=== PATIENT | female | born 1950 | race Caucasian/White ===

== ENCOUNTER 2018-10-20 06:26 | Day surgery (SDC) | payer MEDICARE ==
[2018-10-20] MEDS ORDERED: Lactated Ringers 1,000 ML IV SCH (06:30)
--- NOTE | 2018-10-20 07:56 | HP ---
DATE OF SURGERY: 10/20/2018 ANTICIPATED PROCEDURE: Colonoscopy. HISTORY OF PRESENT ILLNESS: The patient has a large sessile polyp and presents for follow up colonoscopy. PAST MEDICAL HISTORY: ALLERGIES: SULFA. MEDICATIONS: Toprol, alendronate, baby aspirin, lisinopril. PAST SURGICAL HISTORY: Colon resection. Coronary artery bypass graft. Hysterectomy. Tubal ligation. Cholecystectomy. SOCIAL HISTORY: Negative. FAMILY HISTORY: Negative. REVIEW OF SYSTEMS: Cardiac disease. PHYSICAL EXAMINATION: VITAL SIGNS: Normal. CHEST: Clear. COR: Regular. ABDOMEN: Satisfactory. PLAN: Colonoscopy.
[2018-10-20] MEDS ORDERED: DIPRIVAN 200 MG/20 ML IV ONE ×2 (10:03→10:18)
--- NOTE | 2018-10-20 10:47 | OP ---
SURGERY DATE/TIME: 10/20/2018 1001 PREOPERATIVE DIAGNOSIS: Follow up large atypical polyp. POSTOPERATIVE DIAGNOSIS: Normal anastomosis at 55 cm. PROCEDURE: Colonoscopy. SURGEON: Nir Lozano M.D. ANESTHESIA: MAC. COMPLICATIONS: None. CONDITION: Stable. INDICATION: A patient requiring evaluation. She had a previous atypical polyp. DESCRIPTION OF PROCEDURE: Taken to endoscopy. MAC sedation provided. Anal digital examination. Scope advanced 55 cm. Anastomosis normal. Anastomosis could not be cannulated either blind end or the forward limb. There was no suggestion of issue here however at all. All edges were totally smooth and normal. Scope angulation and position would not advance from here.
[2018-10-20 11:13] VITALS: O2SAT 99
[2018-10-20 11:28] VITALS: BP 140/77; PULSE 70
== END 2018-10-20 11:30 | disposition home or self-care (01) ==
LOC: SDC 06:26
PROVIDERS: ATTEND Surgery
DX: Z09 Encounter for follow-up examination after completed treatment for conditions other than malignant neoplasm (principal); Z86.010 Personal history of colon polyps; Z98.0 Intestinal bypass and anastomosis status
CPT/HCPCS: J2704

== ENCOUNTER 2020-10-02 13:27 | Emergency (ER) | payer MEDICARE ==
[2020-10-02 13:59] VITALS: O2SAT 98
[2020-10-02] MEDS ORDERED: Adacel Vial IM ONE ×2 (14:11→14:18)
--- NOTE | 2020-10-02 14:11 | ERPHSYRPT ---
- History of Present Illness Time Seen by Provider: 10/02/20 13:30 Source: patient Exam Limitations: no limitations Patient Subjective Stated Complaint: Pt states "I was bitten by a brown recluse, I know because I saw it. It happened a couple of days ago and I called Dr. Garcia and she told me I might need an antibiotic and to come here because it is not getting any better." Triage Nursing Assessment: Pt presented alert and oriented x 3, skin pwd Pt ambulates with a slight limp. Pt has 7 cmx 6 cm abscess, hard to touch, no streaking noted. CSM X 4. Physician History: 69 years old female presented in the ER with chief complaint of left leg insect bite just below the lateral knee area 2 days ago. Patient think it was brown recluse. She reports gradually increasing swelling and redness around involving almost 3 inches area of sacral branch with associated dull aching pain with burning sensation and itching. She also reports some tingling sensation in the lateral toes. No fever or chills reported. Unsure about tetanus status. Timing/Duration: day(s) (2), sudden, worse Quality: itchy, painful Severity: moderate Location: extremities Possible Causes: insect bite Associated Symptoms: change in skin texture, rash, swelling/mass/lumps Allergies/Adverse Reactions: nitrofurantoin macrocrystalline [From Macrodantin] Allergy (Intermediate, Verified 10/20/18 06:55) Rash rash and wheezes Sulfa (Sulfonamide Antibiotics) [Sulfa(Sulfonamide Antibiotics)] Allergy (Intermediate, Verified 10/20/18 06:55) Rash Home Medications: Metoprolol Succinate 25 mg Xl* [Toprol-Xl 25MG Tablets] 1 tab PO DAILY 02/06/16 [History] Aspirin 81 gm Chew [Baby Aspirin 81 mg Chew] 81 mg PO DAILY 10/13/18 [History] Atorvastatin Calcium [Lipitor] 80 mg PO DAILY 10/02/20 [History] Ezetimibe 10 mg [Zetia 10 MG] 10 mg PO DAILY 10/02/20 [History] Hx Tetanus, Diphtheria Vaccination/Date Given: No Hx Influenza Vaccination/Date Given: No Hx Pneumococcal Vaccination/Date Given: No Immunizations Up to Date: Yes Travel Risk - International Travel Have you traveled outside of the country in past 3 weeks: No - Coronavirus Screening Are you exhibiting any of the following symptoms?: No Close contact with a COVID-19 positive Pt in past 14-21 Days: No - Vaccine Status Have you recieved a Covid-19 vaccination: No - Review of Systems Constitutional: No Symptoms Eyes: No Symptoms Respiratory: No Symptoms Cardiac: No Symptoms Abdominal/Gastrointestinal: No Symptoms Skin: Cellulitis, Skin Lesions Neurological: No Symptoms Psychological: No Symptoms Hematologic/Lymphatic: No Symptoms Immunological/Allergic: No Symptoms - Past Medical History Pertinent Past Medical History: Yes Neurological History: No Pertinent History ENT History: No Pertinent History Cardiac History: Coronary Artery Disease, High Cholesterol Respiratory History: No Pertinent History Endocrine Medical History: No Pertinent History Musculoskeletal History: Osteoporosis GI Medical History: Colorectal Cancer, GERD, Gallbladder Disease History: Other Psycho-Social History: No Pertinent History Female Reproductive Disorders: No Pertinent History Other Medical History: Kidney Stones, hx large colon mass, it was non- cancerous. - Past Surgical History Past Surgical History: Yes Neuro Surgical History: No Pertinent History Cardiac: CABG, Cardiac Catheterization, Other Respiratory: No Pertinent History Gastrointestinal: Colon Resection, Cholecystectomy Genitourinary: Kidney Surgery Musculoskeletal: No Pertinent History Female Surgical History: Hysterectomy, Tubal Ligation Other Surgical History: kidney stone,a&p, hx of sepsis r/t kidney stones,CHF, temporary pacemaker wires remain in place. pt states they were just clipped off. - Social History Smoking Status: Current every day smoker How long have you smoked: years Exposure to second hand smoke: Yes Drug Use: none Patient Lives Alone: No - Female History Hx Now: No - Nursing Vital Signs Nursing Vital Signs: Initial Vital Signs Temperature 98.1 F 10/02/20 13:50 Pulse Rate 86 10/02/20 13:50 Respiratory Rate 20 10/02/20 13:50 Blood Pressure 184/77 10/02/20 13:50 O2 Sat by Pulse Oximetry 98 10/02/20 13:50 Pain Scale Pain Intensity 7 - Physical Exam General Appearance: no apparent distress, alert Eye Exam: eyes nml inspection Ears, Nose, Throat Exam: normal ENT inspection Neck Exam: normal inspection, full range of motion Respiratory Exam: normal breath sounds, lungs clear Cardiovascular Exam: regular rate/rhythm, normal heart sounds Back Exam: normal inspection, normal range of motion Extremity Exam: normal range of motion, pelvis stable Neurologic Exam: alert, oriented x 3, cooperative Skin Exam: normal color, other (Bite nani with surrounding erythema circumferential 7 cm in diameter without any necrosis of the central area of bite. Warm, firm/nonfluctuant. Mildly tender to palpation.) SpO2 Interpretation: normal SpO2: 98 O2 Delivery: Room Air - Progress Progress: unchanged Progress Note: 10/02/20 14:09 Tetanus is updated. She is started on clindamycin. We will give it short course of steroid. Outpatient follow-up. Discussed signs symptoms of worsening needing return to ER which she seems understanding. Counseled pt/family regarding: diagnosis, need for follow-up - Departure Departure Disposition: Home Clinical Impression: Insect bite Qualifiers: Encounter type: initial encounter Site of insect bite: lower leg Laterality: left Qualified Code(s): S80.862A - Insect bite (nonvenomous), left lower leg, initial encounter; W57.XXXA - Bitten or stung by nonvenomous insect and other nonvenomous arthropods, initial encounter Condition: Stable Critical Care Time: No Referrals: BRYCE GARCIA [Primary Care Provider] - Instructions: MRSA (DC), Wound Infection Additional Instructions: Use Tylenol as needed for pain. Follow-up with primary care for reevaluation in 2 days. Return to ER for increasing swelling redness discharge/fever chills/increasing pain or difficulty movements at knee. Prescriptions: Clindamycin HCl 150 mg [Cleocin 150 mg Capsule] 2 cap PO QID #56 capsule Prednisone 20 mg [Deltasone 20 mg] 40 mg PO DAILY 5 Days #10 tablet
[2020-10-02 14:14] VITALS: BP 168/78; PULSE 84
== END 2020-10-02 14:35 | disposition home or self-care (01) ==
LOC: ED 13:27
DX: T63.331A Toxic effect of venom of brown recluse spider, accidental (unintentional), initial encounter (principal); M79.89 Other specified soft tissue disorders
CPT/HCPCS: 90471; 90715; 99283

== ENCOUNTER 2023-04-25 05:12 | Emergency (ER) | payer MEDICARE ==
[2023-04-25 05:32] VITALS: TEMP 96
--- NOTE | 2023-04-25 06:03 | ERPHSYRPT ---
- History of Present Illness Historian: patient, family Exam Limitations: no limitations Patient Subjective Stated Complaint: Abdominal pain Triage Nursing Assessment: Patient brought back to ED per w/c and transferred to bed per self. Patient A+O X3. Patient's skin pale, warm and dry. Patient complains of abdominal pain, N/V and diarrhea since yesterday at 1600. Abdomen soft and round with BS X 4. Patient complains of abdominal pain 8/10. Activities at Onset: none Quality: cramping, sharpness Abdominal Pain Onset Location: generalized abdomen Pain Radiation: no radiation Severity of Pain-Max: moderate Severity of Pain-Current: moderate Modifying Factors: Improves With: vomiting Associated Symptoms: nausea, vomiting Previous symptoms: no prior history Hx Tetanus, Diphtheria Vaccination/Date Given: No Hx Influenza Vaccination/Date Given: No Hx Pneumococcal Vaccination/Date Given: No Immunizations Up to Date: Yes <ELSA YANEZ - Last Filed: 04/25/23 06:43> <SALINA MACE - Last Filed: 04/25/23 08:05> - History of Present Illness Time Seen by Provider: 04/25/23 06:02 Physician History: pt has had abd pain since last afternoon with vomiting. prior abd tumor resection and cholecystectomy. general tenderness accross upper abdomen on exam . No prior episodes. discussed risks/benefits of testing with pt including CT abd, CBC, CMP, Lacate, Lipase , jer, UA, EKG, Trop, and Tx IVF zofran, morphine, and she wishes to proceed. THese are ordered, results discussed with pt . (ELSA YANEZ) Allergies/Adverse Reactions: nitrofurantoin macrocrystalline [From Macrodantin] Allergy (Intermediate, Verified 04/25/23 05:22) Rash rash and wheezes Sulfa (Sulfonamide Antibiotics) [Sulfa(Sulfonamide Antibiotics)] Allergy (Intermediate, Verified 04/25/23 05:22) Rash meperidine [From Demerol] Allergy (Verified 04/25/23 05:24) Hallucinations Home Medications: Metoprolol Succinate 25 mg Xl* [Toprol-Xl 25MG Tablets] 2 tab PO DAILY 02/06/16 [History] Aspirin 81 gm Chew [Baby Aspirin 81 mg Chew] 81 mg PO DAILY 10/13/18 [History] Travel Risk - International Travel Have you traveled outside of the country in past 3 weeks: No - Coronavirus Screening Are you exhibiting any of the following symptoms?: No Close contact with a COVID-19 positive Pt in past 14-21 Days: No - Vaccine Status Have you recieved a Covid-19 vaccination: Yes Sourcing Analyst: Unknown - Vaccination Dates Dates if Unknown: na <ELSA YANEZ - Last Filed: 04/25/23 06:43> - Review of Systems Constitutional: No Fever, No Chills Eyes: No Symptoms Ears, Nose, & Throat: No Symptoms Respiratory: No Cough, No Dyspnea Cardiac: No Chest Pain, No Edema, No Syncope Abdominal/Gastrointestinal: Abdominal Pain, Nausea, Vomiting, No Diarrhea Genitourinary Symptoms: No Dysuria Musculoskeletal: No Back Pain, No Neck Pain Skin: No Rash Neurological: No Dizziness, No Focal Weakness, No Sensory Changes Psychological: No Symptoms Endocrine: No Symptoms Hematologic/Lymphatic: No Symptoms Immunological/Allergic: No Symptoms All Other Systems: Reviewed and Negative <ELSA YANEZ - Last Filed: 04/25/23 06:43> - Past Medical History Pertinent Past Medical History: Yes Neurological History: No Pertinent History ENT History: No Pertinent History Cardiac History: Coronary Artery Disease, High Cholesterol Respiratory History: No Pertinent History Endocrine Medical History: No Pertinent History Musculoskeletal History: Osteoporosis GI Medical History: Colorectal Cancer, GERD, Gallbladder Disease History: Other Psycho-Social History: No Pertinent History Female Reproductive Disorders: No Pertinent History Other Medical History: Kidney Stones, hx large colon mass, it was non- cancerous. - Past Surgical History Past Surgical History: Yes Neuro Surgical History: No Pertinent History Cardiac: CABG, Cardiac Catheterization, Other Respiratory: No Pertinent History Gastrointestinal: Colon Resection, Cholecystectomy Genitourinary: Kidney Surgery Musculoskeletal: No Pertinent History Female Surgical History: Hysterectomy, Tubal Ligation Other Surgical History: kidney stone,a&p, hx of sepsis r/t kidney stones,CHF, temporary pacemaker wires remain in place. pt states they were just clipped off. - Social History Smoking Status: Current every day smoker How long have you smoked: years Exposure to second hand smoke: Yes Drug Use: none Patient Lives Alone: No <ELSA YANEZ - Last Filed: 04/25/23 06:43> - Physical Exam General Appearance: mild distress, alert Eye Exam: PERRL/EOMI, eyes nml inspection Ears, Nose, Throat Exam: normal ENT inspection, pharynx normal, moist mucous membranes Neck Exam: normal inspection, non-tender, supple, full range of motion Respiratory Exam: normal breath sounds, lungs clear, No respiratory distress Cardiovascular Exam: regular rate/rhythm, normal heart sounds Gastrointestinal/Abdomen Exam: soft, tenderness, guarding, No mass Pelvic Exam: deferred Rectal Exam: deferred Back Exam: normal inspection, normal range of motion, No CVA tenderness, No vertebral tenderness Extremity Exam: normal inspection, normal range of motion, pelvis stable Neurologic Exam: alert, oriented x 3, cooperative, normal mood/affect, nml cerebellar function, sensation nml, No motor deficits Skin Exam: normal color, warm, dry SpO2 Interpretation: normal SpO2: 96 O2 Delivery: Room Air <ELSA YANEZ - Last Filed: 04/25/23 06:43> - Nursing Vital Signs Nursing Vital Signs: Initial Vital Signs Temperature 96.0 F 04/25/23 05:27 Pulse Rate 76 04/25/23 05:27 Respiratory Rate 20 04/25/23 05:27 Blood Pressure 165/67 04/25/23 05:27 O2 Sat by Pulse Oximetry 96 04/25/23 05:27 Pain Scale Pain Intensity 5 - Course Nursing assessment & vital signs reviewed: Yes EKG Interpreted by Me: Sinus Rhythm, NORMAL INTERVALS, NORMAL QRS, Non-specific ST Changes <BEAUELSA SANDRA - Last Filed: 04/25/23 06:43> - CT Exams Abdomen/Pelvis CT Interpretation: Tele-radiologist Report <SALINA MACE - Last Filed: 04/25/23 08:05> Ordered Tests: Active Orders 24 hr Category Date Time Status EKG-ER Only STAT Care 04/25/23 06:17 Active IV Insertion STAT Care 04/25/23 06:17 Active ABDOMEN AND PELVIS W/0 CONTRAS [CT] Stat Exams 04/25/23 06:18 Completed AMYLASE Stat Lab 04/25/23 06:20 Completed CBC W DIFF Stat Lab 04/25/23 06:20 Completed CMP Stat Lab 04/25/23 06:20 Completed LIPASE Stat Lab 04/25/23 06:20 Completed Lactic Acid Stat Lab 04/25/23 06:25 Completed TROPONIN Q4H Lab 04/25/23 06:20 Completed TROPONIN Q4H Lab 04/25/23 10:30 Ordered TROPONIN Q4H Lab 04/25/23 14:30 Ordered UA W/RFX UR CULTURE Stat Lab 04/25/23 06:20 Completed Medication Summary Generic Name Dose Route Start Last Admin Trade Name Ariadna PRN Reason Stop Dose Admin Sodium Chloride 1,000 mls @ 100 mls/hr 04/25/23 06:30 04/25/23 06:30 Sodium Chloride 0.9% 1000 Ml IV 05/25/23 06:29 100 mls/hr .Q10H PARAM Administration Discontinued Medications Generic Name Dose Route Start Last Admin Trade Name Ariadna PRN Reason Stop Dose Admin Famotidine 20 mg 04/25/23 06:17 04/25/23 06:27 Famotidine 20 Mg/1 Vial IV 04/25/23 06:18 20 mg STAT ONE Administration Famotidine Confirm 04/25/23 06:22 Famotidine 20 Mg/1 Vial Administered 04/25/23 06:23 Dose 20 mg IV .STK-MED ONE Morphine Sulfate 4 mg 04/25/23 06:17 04/25/23 06:30 Morphine Sulfate 4 Mg/Ml Injection IV 04/25/23 06:18 4 mg STAT ONE Administration Morphine Sulfate Confirm 04/25/23 06:23 Morphine Sulfate 4 Mg/Ml Injection Administered 04/25/23 06:24 Dose 4 mg .ROUTE .STK-MED ONE Ondansetron HCl 4 mg 04/25/23 06:17 04/25/23 06:25 Ondansetron Hcl 4 Mg/2 Ml Vial IV 04/25/23 06:18 4 mg STAT ONE Administration Ondansetron HCl Confirm 04/25/23 06:22 Ondansetron Hcl 4 Mg/2 Ml Vial Administered 04/25/23 06:23 Dose 4 mg .ROUTE .STK-MED ONE Pantoprazole Sodium 40 mg 04/25/23 06:17 04/25/23 06:26 Pantoprazole 40 Mg Vial IV 04/25/23 06:18 40 mg STAT ONE Administration Pantoprazole Sodium Confirm 04/25/23 06:23 Pantoprazole 40 Mg Vial Administered 04/25/23 06:24 Dose 40 mg IV .STK-MED ONE Lab/Rad Data: Laboratory Result Diagrams 04/25/23 06:20 04/25/23 06:20 Laboratory Results 04/25/23 04/25/23 04/25/23 Range/Units 06:25 06:20 06:20 WBC (4.0-10.5) x10^3/uL RBC (4.1-5.4) x10^6/uL Hgb (12.0-16.0) g/dL Hct (35-47) % MCV (78-100) fL MCH (26-32) pg MCHC (32-36) g/dL RDW (11.5-14.0) % Plt Count (150-450) x10^3/uL MPV (7.5-11.0) fL Gran % (36.0-66.0) % Immature Gran % (Auto) (0.00-0.4) % Nucleat RBC Rel Count (0.00-0.1) % Eos # (Auto) (0-0.5) x10^3/uL Immature Gran # (Auto) (0.00-0.03) x10^3u/L Absolute Lymphs (auto) (1.0-4.6) x10^3/uL Absolute Monos (auto) (0.0-1.3) x10^3/uL Absolute Nucleated RBC (0.00-0.01) x10^3u/L Lymphocytes % (24.0-44.0) % Monocytes % (0.0-12.0) % Eosinophils % (0.00-5.0) % Basophils % (0.0-0.4) % Absolute Granulocytes (1.4-6.9) x10^3/uL Basophils # (0-0.4) x10^3/uL Sodium 140 (137-145) mmol/L Potassium 3.8 (3.5-5.1) mmol/L Chloride 108 H (98-107) mmol/L Carbon Dioxide 23 (22-30) mmol/L Anion Gap 12.0 (5-15) MEQ/L BUN 26 H (7-17) mg/dL Creatinine 1.27 H (0.52-1.04) mg/dL Estimated GFR 44.7 ML/MIN Glucose 160 H (74-106) mg/dL Lactic Acid 1.6 (0.4-2.0) Calcium 10.3 H (8.4-10.2) mg/dL Total Bilirubin 1.10 (0.2-1.3) mg/dL AST 30 (14-36) U/L ALT 21 (0-35) U/L Alkaline Phosphatase 123 (38-126) U/L Troponin I < 0.012 (0.000-0.034) ng/mL Serum Total Protein 7.5 (6.3-8.2) g/dL Albumin 4.6 (3.5-5.0) g/dL Amylase 77 (30-110) U/L Lipase 32 (23-300) U/L Urine Color (Yellow) Urine Appearance (Clear) Urine pH (4.6-8.0) Ur Specific Marston (1.005-1.030) Urine Protein (Negative) Urine Glucose (UA) (Negative) mg/dL Urine Ketones (Negative) Urine Blood (Negative) Urine Nitrite (Negative) Urine Bilirubin (Negative) Urine Urobilinogen (0.2) mg/dL Ur Leukocyte Esterase (Negative) U Hyaline Cast (Auto) (0-2) /LPF Urine Microscopic RBC (0-5) /HPF Urine Microscopic WBC (0-5) /HPF Ur Epithelial Cells (None Seen) /HPF Urine Bacteria (None Seen) /HPF Urine Culture Reflexed (NO) Influenza Type A Ag (NEGATIVE) Influenza Type B Ag (NEGATIVE) RSV (PCR) (NEGATIVE) SARS-CoV-2 (PCR) (NEGATIVE) 04/25/23 04/25/23 04/25/23 Range/Units 06:20 06:20 06:15 WBC 15.1 H (4.0-10.5) x10^3/uL RBC 4.74 (4.1-5.4) x10^6/uL Hgb 14.3 (12.0-16.0) g/dL Hct 43.9 (35-47) % MCV 92.6 (78-100) fL MCH 30.2 (26-32) pg MCHC 32.6 (32-36) g/dL RDW 12.2 (11.5-14.0) % Plt Count 212 (150-450) x10^3/uL MPV 12.2 H (7.5-11.0) fL Gran % 90.4 H (36.0-66.0) % Immature Gran % (Auto) 0.3 (0.00-0.4) % Nucleat RBC Rel Count 0.0 (0.00-0.1) % Eos # (Auto) 0 (0-0.5) x10^3/uL Immature Gran # (Auto) 0.05 H (0.00-0.03) x10^3u/L Absolute Lymphs (auto) 0.87 L (1.0-4.6) x10^3/uL Absolute Monos (auto) 0.49 (0.0-1.3) x10^3/uL Absolute Nucleated RBC 0.00 (0.00-0.01) x10^3u/L Lymphocytes % 5.8 L (24.0-44.0) % Monocytes % 3.2 (0.0-12.0) % Eosinophils % 0.0 (0.00-5.0) % Basophils % 0.3 (0.0-0.4) % Absolute Granulocytes 13.66 H (1.4-6.9) x10^3/uL Basophils # 0.05 (0-0.4) x10^3/uL Sodium (137-145) mmol/L Potassium (3.5-5.1) mmol/L Chloride (98-107) mmol/L Carbon Dioxide (22-30) mmol/L Anion Gap (5-15) MEQ/L BUN (7-17) mg/dL Creatinine (0.52-1.04) mg/dL Estimated GFR ML/MIN Glucose (74-106) mg/dL Lactic Acid (0.4-2.0) Calcium (8.4-10.2) mg/dL Total Bilirubin (0.2-1.3) mg/dL AST (14-36) U/L ALT (0-35) U/L Alkaline Phosphatase (38-126) U/L Troponin I (0.000-0.034) ng/mL Serum Total Protein (6.3-8.2) g/dL Albumin (3.5-5.0) g/dL Amylase (30-110) U/L Lipase (23-300) U/L Urine Color Dark Yellow A (Yellow) Urine Appearance Clear (Clear) Urine pH 5.5 (4.6-8.0) Ur Specific Marston 1.025 (1.005-1.030) Urine Protein 30 (Negative) Urine Glucose (UA) Negative (Negative) mg/dL Urine Ketones Trace A (Negative) Urine Blood Negative (Negative) Urine Nitrite Negative (Negative) Urine Bilirubin Small A (Negative) Urine Urobilinogen 1.0 A (0.2) mg/dL Ur Leukocyte Esterase Small A (Negative) U Hyaline Cast (Auto) NONE SEEN (0-2) /LPF Urine Microscopic RBC 0-2 (0-5) /HPF Urine Microscopic WBC 3-5 (0-5) /HPF Ur Epithelial Cells Few (None Seen) /HPF Urine Bacteria Rare A (None Seen) /HPF Urine Culture Reflexed NO (NO) Influenza Type A Ag NEGATIVE (NEGATIVE) Influenza Type B Ag NEGATIVE (NEGATIVE) RSV (PCR) NEGATIVE (NEGATIVE) SARS-CoV-2 (PCR) NEGATIVE (NEGATIVE) CT/ABDOMEN AND PELVIS W/0 CONTRAS CLINICAL HISTORY: abd pain TECHNIQUE: CT scan of the abdomen and pelvis was performed without IV contrast. COMPARISON: None FINDINGS: The liver is normal size and shape and with regular margins. No focal or diffuse parenchymal abnormality. No hepatic mass is identified. The portal vein, intrahepatic biliary radicals, and the bile ducts are normal. The gall bladder is surgically removed with surgical clips. Pancreas appears normal. No peripancreatic fat stranding, pancreatic pseudocyst or peripancreatic fluid collection. Spleen normal in size, no mass seen. it shows multiple calcific foci likely granulomatous. Both adrenal glands are unremarkable. Both kidneys are normal in size, shape and orientation. No calculi, cyst mass or hydronephrosis seen on either side. Left renal cortical macrolobulated cyst measuring 5.2 x 3.8 cm. Both ureters and urinary bladder appear normal. Stomach and small bowel loops are unremarkable. Caecum, appendix and ileocecal junction appear normal. Large bowel loops appear distended with multiple fecal residue up to the distal descending colon where there the sigmoid colon is nearly collapsed. No gross masses or abnormal wall thickening was noted at this point. Evidence of surgical suturing in the descending colon for clinical correlation. Few diverticula are noted, one showing subtle surrounding fatty smudging. Sigmoid and rectum appear normal. No free peritoneal fluid or air. No evidence of significant enlargement of the mesenteric or retroperitoneal lymph nodes. Atheromatous calcifications of aorta and iliacs. Visualized thoracic and lumbar spine appear normal. No lytic or sclerotic bone lesions in visualized bones. Lower chest cuts show basal pulmonary parenchymal bands, coronary calcifications and evidence of previous sternotomy. IMPRESSION: 1. Distended large bowel with evidence of fecal impaction up the distal descending colon, the sigmoid colon is normal in caliber and the transition point is smooth with no gross masses or significant wall thickening. Few adjacent diverticula are seen, one of which shows subtle adjacent wall thickening (could represent diverticulitis). Evidence of surgical suturing in the descending colon for clinical correlation. 2. Splenic calcific foci likely granulomatous. 3. Left renal cortical cyst. 4. Aortoiliac and coronary atheromatous calcifications. (SALINA MACE) - Progress Progress: improved, re-examined Counseled pt/family regarding: lab results, diagnosis, need for follow-up, rad results <ELSA YANEZ - Last Filed: 04/25/23 06:43> <SALINA MACE - Last Filed: 04/25/23 08:05> - Progress Progress Note: 04/25/23 06:[address] Mace at change of shift for final disposition and Treatment after introduction and discussion of pending lab/imaging and differential diagnosis, hx, and current findings. (ELSA YANEZ) 04/25/23 07:25 Patient is examined. Patient still complaining of somewhat nausea and abdominal pain. Awaiting CAT scan results (SALINA MACE) Medical Desision Making - Discussion of managment Reviewed:: Test results, Need for additional workup Agreed on:: Treatment plan, need for follow-up - Diagnostic Testing Diagnostic test were ordered, analyzed, and reviewed by me: Yes Radiological Interpretation: Reviewed by me, Teleradiologist Report - Risk of complications The pt has a mod risk of morbidity or mortality based on: Need for prescription drug management The pt has a high risk of morbidity or mortality based on: Decision regarding hospitilization or escalation of hosp level of care <ELSA YANEZ - Last Filed: 04/25/23 06:43> - Departure Critical Care Time: No <ELSA YANEZ - Last Filed: 04/25/23 06:43> - Departure Departure Disposition: Home <SALINA MACE - Last Filed: 04/25/23 08:05> - Departure Clinical Impression: Abdominal pain in female, Hypovolemia dehydration, Constipation by delayed colonic transit Vomiting Qualifiers: Vomiting type: unspecified Nausea presence: with nausea Qualified Code(s): R11.2 - Nausea with vomiting, unspecified Condition: Stable Referrals: LISANDRO POWELL [Primary Care Provider] - Follow up/PCP as directed Instructions: Abdominal pain, Dehydration, Adult (DC) Additional Instructions: Discharge/Care Plan MURIEL JONES was seen on 04/25/23 in the Emergency Room. The patient was counseled regarding Diagnosis,Lab results, Imaging studies, need for follow up and when to return to the Emergency Room. Prescriptions given: Discharge Note I have spoken with the patient and/or caregivers. I have explained the patient's condition, diagnosis and treatment plan based on the information available to me at this time. I have answered the patient's and/or caregiver's questions and addressed any concerns. The patient and/or caregivers have as good understanding of the patient's diagnosis, condition and treatment plan as can be expected at this point. The vital signs have been stable. The patient's condition is stable and appropriate for discharge from the emergency department. The patient will pursue further outpatient evaluation with the primary care physician or other designated or consulting physician as outlined in the discharge instructions. The patient and/or caregivers are agreeable to this plan of care and follow-up instructions have been explained in detail. The patient and/or caregivers have received these instruction. The patient/and or caregivers are aware that any significant change in condition or worsening of symptoms should prompt an immediate return to this or the closest emergency department or call 911. MURIEL JONES was seen on 04/25/23 n the Emergency Room. At that time you were treated for an emergent condition, during your visit Laboratory, Radiology and/or other procedures may have been ordered. It is very important that you follow-up with your Primary Care Physician LISANDRO POWELL within the next 24-48 hours to review your Emergency Room visit and the final results of testing that was ordered. Some test results such as Urine Cultures, Blood Cultures, and other cultures if ordered will not be finalized for 24-48 hours. If you do not have a Primary Care Provider please call the medical records department at [phone] ext [phone] to obtain a copy of your results or you may sign into our patient portal to obtain these results by visiting us @ [email or web address] and completing the following steps: 1. Click on the Patient Portal link 2. Click the Patient Self Enrollment Link to complete the enrollment form and entering your 3. Once the enrollment form is completed you will receive an email with a temporary ID and password at the email address you provided. 4. Next choose a user name and password. Your user name must be at least 4 characters long and your password must be at least 4 characters long. 5. Choose a security question from the list and provide your answer to the question. If you already have signed into the Health Portal you may access your Health Care Information 12/10 by the following steps: 1. Login to our website @ [email or web address] 2. Enter your original user name and password. FAQS The [facility] Health Portal is an online tool that contains your Lab Results, Radiology Reports, Visit History, Discharge Instructions and Health Summary Lab and Radiology Results will not be available for 72 hours on the portal. The Portal is a secure site, passwords are encryted and URLs are re-written so they cannot be copied and pasted. You and authorized family members are the only ones who can access your Portal. Also there is a timeout feature that protects your information if you leave the Portal page open. If you have technical difficulty please use the Contact Us link on the page this will allow you to submit any questions you have regarding the Portal or you may contact the Medical Record Department at [phone] ext [phone]. Prescriptions: Sennosides/Docusate Sodium [Colace 2-in-1 Tablet] 1 each PO BID #30 tablet
[2023-04-25] MEDS ORDERED: Zofran 4 MG/2 ML VIAL IV ONE (06:17)
[2023-04-25] MEDS ORDERED: MORPHINE SULFATE 4 MG INJ IV ONE (06:17)
[2023-04-25] MEDS ORDERED: Pepcid 20 MG VIAL IV ONE ×2 (06:17→06:22)
[2023-04-25] MEDS ORDERED: PROTONIX 40 MG IV IV ONE ×2 (06:17→06:23)
[2023-04-25] MEDS ORDERED: Zofran 4 MG/2 ML VIAL ONE (06:22)
[2023-04-25] MEDS ORDERED: MORPHINE SULFATE 4 MG INJ ONE (06:23)
[2023-04-25] MEDS ORDERED: Sodium Chloride 0.9% 1000 ML 1,000 ML ONE (06:23)
[2023-04-25 06:25] LABS: Absolute Neutrophil Ct (ANC) 13.66 x10^3/uL (1.4-6.9); BASOPHIL % 0.3 % (0.0-0.4); Basophil (Absolute #) 0.05 x10^3/uL (0-0.4); Eosinophil (Absolute #) 0 x10^3/uL (0-0.5); Hematocrit 43.9 % (35-47); Hemoglobin 14.3 g/dL (12.0-16.0); IMMATURE GRAN # 0.05 x10^3u/L (0.00-0.03); IMMATURE GRAN % 0.3 % (0.00-0.4); Lymphocyte (Absolute #) 0.87 x10^3/uL (1.0-4.6); Lymphocytes % 5.8 % (24.0-44.0); Mean Cell Volume 92.6 fL (78-100); Mean Corpuscular Hemoglobin 30.2 pg (26-32); Mean Corpuscular Hgb Concent. 32.6 g/dL (32-36); Mean Platelet Volume 12.2 fL (7.5-11.0); Monocyte (Absolute #) 0.49 x10^3/uL (0.0-1.3); Monocytes % 3.2 % (0.0-12.0); Neutrophil % 90.4 % (36.0-66.0); Platelet Count 212 x10^3/uL (150-450); Red Blood Count 4.74 x10^6/uL (4.1-5.4); Red Cell Distribution Width 12.2 % (11.5-14.0); White Blood Count 15.1 x10^3/uL (4.0-10.5)
[2023-04-25] MEDS ORDERED: Sodium Chloride 0.9% 1000 ML 1,000 ML IV SCH (06:30)
[2023-04-25 06:40] LABS: ALBUMIN 4.6 g/dL (3.5-5.0); BILIRUBIN,TOTAL 1.1 mg/dL (0.2-1.3); Calcium 10.3 mg/dL (8.4-10.2); Creatinine 1 1.27 mg/dL (0.52-1.04); EST GLOMERULAR FILTRATION RATE 44.7 ML/MIN; Potassium 3.8 mmol/L (3.5-5.1); Total Protein 7.5 g/dL (6.3-8.2)
[2023-04-25 06:57] LABS: Appearance Clear (Clear); Bilirubin Small (Negative); Blood Negative (Negative); Glucose, Urine Negative (Negative); Hyaline Casts NONE SEEN /LPF (0-2); Ketones Trace (Negative); Leukocyte Esterase Small (Negative); Nitrite Negative (Negative); Ph 5.5 (4.6-8.0); Protein,Urine Dip 30 (Negative); RBC 0-2 /HPF (0-5); Specific Gravity 1.025 (1.005-1.030)
[2023-04-25 07:04] LABS: INFLUENZA A NEGATIVE (NEGATIVE); INFLUENZA B NEGATIVE (NEGATIVE); RESPIRATORY SYNCTIAL VIRUS NEGATIVE (NEGATIVE); SARS-CoV-2 Xpert Express NEGATIVE (NEGATIVE)
[2023-04-25 07:18] LABS: ADD URINE CULTURE? NO (NO); Bacteria Rare /HPF (None Seen); Epithelial Cells Few /HPF (None Seen)
--- NOTE | 2023-04-25 07:57 | XRAY ---
CLINICAL HISTORY: abd pain TECHNIQUE: CT scan of the abdomen and pelvis was performed without IV contrast. COMPARISON: None FINDINGS: The liver is normal size and shape and with regular margins. No focal or diffuse parenchymal abnormality. No hepatic mass is identified. The portal vein, intrahepatic biliary radicals, and the bile ducts are normal. The gall bladder is surgically removed with surgical clips. Pancreas appears normal. No peripancreatic fat stranding, pancreatic pseudocyst or peripancreatic fluid collection. Spleen normal in size, no mass seen. it shows multiple calcific foci likely granulomatous. Both adrenal glands are unremarkable. Both kidneys are normal in size, shape and orientation. No calculi, cyst mass or hydronephrosis seen on either side. Left renal cortical macrolobulated cyst measuring 5.2 x 3.8 cm. Both ureters and urinary bladder appear normal. Stomach and small bowel loops are unremarkable. Caecum, appendix and ileocecal junction appear normal. Large bowel loops appear distended with multiple fecal residue up to the distal descending colon where there the sigmoid colon is nearly collapsed. No gross masses or abnormal wall thickening was noted at this point. Evidence of surgical suturing in the descending colon for clinical correlation. Few diverticula are noted, one showing subtle surrounding fatty smudging. Sigmoid and rectum appear normal. No free peritoneal fluid or air. No evidence of significant enlargement of the mesenteric or retroperitoneal lymph nodes. Atheromatous calcifications of aorta and iliacs. Visualized thoracic and lumbar spine appear normal. No lytic or sclerotic bone lesions in visualized bones. Lower chest cuts show basal pulmonary parenchymal bands, coronary calcifications and evidence of previous sternotomy. IMPRESSION: 1. Distended large bowel with evidence of fecal impaction up the distal descending colon, the sigmoid colon is normal in caliber and the transition point is smooth with no gross masses or significant wall thickening. Few adjacent diverticula are seen, one of which shows subtle adjacent wall thickening (could represent diverticulitis). Evidence of surgical suturing in the descending colon for clinical correlation. 2. Splenic calcific foci likely granulomatous. 3. Left renal cortical cyst. 4. Aortoiliac and coronary atheromatous calcifications. Electronically Signed by: Rama Lowry MD. (04/25/2023 07:53:59 EST)
[2023-04-25] MEDS ORDERED: CITROMA 296 ML ONE (08:07)
[2023-04-25] MEDS ORDERED: CITROMA 296 ML PO ONE (08:12)
[2023-04-25 08:25] VITALS: BP 167/84; PULSE 76; RESP 21; O2SAT 96
== END 2023-04-25 08:29 | disposition home or self-care (01) ==
LOC: ED 05:12
DX: E86.1 Hypovolemia (principal); E86.0 Dehydration; K59.01 Slow transit constipation; R10.9 Unspecified abdominal pain; R11.2 Nausea with vomiting, unspecified; E78.5 Hyperlipidemia, unspecified; Z79.899 Other long term (current) drug therapy; Z72.0 Tobacco use; Z20.828 Contact with and (suspected) exposure to other viral communicable diseases
CPT/HCPCS: 0241U; 36000; 36415; 74176; 80053; 81001; 82150; 83605; 83690; 84484; 85025; 93005; 96374; 96375; 99284; J2270; J2405; A9270-GY

== ENCOUNTER 2024-04-27 06:47 | Day surgery (SDC) | payer MEDICARE ==
--- NOTE | 2024-04-26 10:30 | HP ---
HISTORY OF PRESENT ILLNESS: The patient is a 73-year-old female who presents with complaints of constipation. Denies rectal bleeding and abdominal pain. She has complaints of just some mild heartburn. She does have a history of colon resection for a benign polyp. PAST MEDICAL HISTORY: Hypertension, hyperlipidemia. HOME MEDICATIONS: Metoprolol, Zocor. ALLERGIES: Demerol, Macrodantin, and sulfa. PAST SURGICAL HISTORY: Colon resection, cholecystectomy, hysterectomy, tubal ligation, CABG. SOCIAL HISTORY: Former smoker. FAMILY HISTORY: Cancer, unspecified. REVIEW OF SYSTEMS: CONSTITUTIONAL: Denies fever or chills. CHEST: Denies shortness of breath. CARDIOVASCULAR: Denies chest pain. ABDOMEN: Denies abdominal pain. PHYSICAL EXAMINATION: GENERAL: No acute distress. CARDIOVASCULAR: Regular rate and rhythm. RESPIRATORY: Nonlabored. No shortness of breath. ABDOMEN: Soft. IMPRESSION: History of polyps, history of colon resection for a benign polyp. PLAN: Colonoscopy with Dr. Nir Lozano. This report was dictated for Dr. Lozano by Anjelica Donald NP.
[2024-04-27] MEDS: Lactated Ringers 1,000 ML IV SCH (07:22)
[2024-04-27 07:24] VITALS: RESP 16
[2024-04-27 07:44] LABS: ANION GAP 8.8 MEQ/L (5-15); Calcium 9.5 mg/dL (8.4-10.2); Creatinine 1 0.99 mg/dL (0.52-1.04); EST GLOMERULAR FILTRATION RATE 59.8 ML/MIN; Potassium 3.7 mmol/L (3.5-5.1)
[2024-04-27] MEDS ORDERED: propofoL IV ONE ×2 (09:09→10:02)
[2024-04-27] MEDS ORDERED: Xylocaine-Mpf 2% 5 Ml Vial ONE (09:14)
[2024-04-27 10:38] VITALS: TEMP 98.3
[2024-04-27 10:44] VITALS: BP 143/86; PULSE 54; O2SAT 99
--- NOTE | 2024-04-28 14:27 | OP ---
SURGERY DATE/TIME: 04/27/2024 2505-0351 PREOPERATIVE DIAGNOSES: 1) History of epigastric pain. 2) History of previous colon resection. POSTOPERATIVE DIAGNOSES: 1) Grade 2/4 gastroesophageal reflux disease. 2) Moderate, severe, residual sigmoid diverticulosis. PROCEDURE: 1) Esophagogastroduodenoscopy. 2) Colonoscopic examination to 60 cm. SURGEON: Nir Lozano MD ANESTHESIA: General. COMPLICATIONS: None. CONDITION: Stable. INDICATIONS: Please refer to Dr. Tariq. Has epigastric discomfort. She is also due for a due for a followup colonoscopic examination. DESCRIPTION OF PROCEDURE AND FINDINGS: Patient was taken to endoscopy. Pharyngoesophageal junction normal. Esophagus normal down to EG junction with grade 2/4 GERD, a 1 inch hiatal hernia. Fundus, body, and antrum satisfactory. Pylorus satisfactory. Duodenal bulb satisfactory. Second portion satisfactory. Scope withdrawn, looped upon itself. A 1 inch hiatal hernia. Scope withdrawn. Anal digital examination: Normal rectum. There was some stool. There were at least 40 or 50 diverticula moth balls about 1 cm. It was re-navigated up to 60 cm. It was where the colon ended. No mucosal lesions were noted today. Circumferential withdrawal. Appendiceal orifice satisfactory. Follow up colonoscopy in 3 years.
== END 2024-04-27 10:55 | disposition home or self-care (01) ==
LOC: SDC 06:47
PROVIDERS: ATTEND Surgery
DX: K21.9 Gastro-esophageal reflux disease without esophagitis (principal); R10.13 Epigastric pain; I10 Essential (primary) hypertension; Z90.49 Acquired absence of other specified parts of digestive tract; K57.30 Diverticulosis of large intestine without perforation or abscess without bleeding; K44.9 Diaphragmatic hernia without obstruction or gangrene
CPT/HCPCS: 36415; 80048; 93005; 99100; J2704